=== PATIENT | male | born 1985 | race Two or more races ===

== ENCOUNTER 2018-01-11 07:11 | Emergency (ER) | payer OTHER ==
[~2018-01-11] VITALS: Ht 177.8 cm; Wt 83.0 kg
[2018-01-11 07:15] VITALS: BP 126/67
== END 2018-01-11 08:31 | disposition home or self-care (01) ==
LOC: ED 08:10
DX: L20.9 Atopic dermatitis, unspecified (principal)
CPT/HCPCS: 99283